=== PATIENT | female | born 2000 ===

== ENCOUNTER 2019-09-29 05:13 | Day surgery (SDC) | payer OTHER ==
[~2019-09-29] VITALS: Ht 160 cm; Wt 118.8 kg
[~2019-09-29 05:13] MED LIST: NORCO 5-325 TA1 EACH ORAL; PORTIA1 EACH PO
[2019-09-29 05:59] VITALS: BP 112/71
[2019-09-29] MEDS ORDERED: HYDROmorphone 1mg/ml Carpuject SUBQ PRN (06:00)
[2019-09-29] MEDS ORDERED: HYDROcodone/Acetamin 10/325 tab ORAL PRN (06:00)
[2019-09-29] MEDS ORDERED: LR 1000ml 1,000 ML IVLG SCH (06:08)
--- NOTE | 2019-09-29 06:10 | Anethesia Preoperative Eval ---
Anesthesia Pre-op PMH/ROS General Date of Evaluation: Sep 29, 2019 Time of Evaluation: 07:16 Anesthesiologist: Anne-Marie ASA Score: ASA 2 Mallampati Score Class I : Soft palate, uvula, fauces, pillars visible Class II: Soft palate, uvula, fauces visible Class III: Soft palate, base of uvula visible Class IV: Only hard plate visible Mallampati Classification: Class II Surgeon: Debi Diagnosis: Back Pain Surgical Procedure: L4-5 Microdiscectomy Social History: smoking Family History: no anesthesia problems Allergies: Coded Allergies: No Known Allergies (Unverified , 09/28/19) Medications: see eMAR Patient NPO?: Yes Past Medical History Other: obesity - Morbid BMI 46 Anesthesia Pre-op Phys. Exam Physician Exam Last Vital Signs Date Time Temp Pulse Resp B/P (MAP) Pulse Ox O2 Delivery O2 Flow Rate FiO2 09/29/19 05:59 98.2 74 20 112/71 98 Room Air Constitutional: NAD Neurologic: CN 2-12 intact Cardiovascular: RRR Respiratory: CTA Gastrointestinal: S/NT/ND Airway Exam Mallampati Score: Class II MO: full ROM: limited Teeth: intact Anesthesia Pre-op A/P Labs Urine Test Test 09/29/19 05:25 Urine HCG, Qualitative Pending Risk Assessment & Plan Assessment: ASA 2 Plan: GA, SED, GlideScope Go Status Change Before Surgery: No Pre-Antibiotics Dru Grams Ancef IV Given Within 1 Hr of Incision: Yes Time Given: 07:34 Ivan Xie MD Sep 29, 2019 06:10
[2019-09-29] MEDS ORDERED: Rocuronium Bromide 50mg/5ml Inj IV ONE (06:12)
[2019-09-29] MEDS ORDERED: DiphenhydrAMINE 50mg/ml Inj IVP PRN (06:15)
[2019-09-29] MEDS ORDERED: Ketorolac 30mg Inj IV PRN ×2 (06:15)
[2019-09-29] MEDS ORDERED: Acetaminophen (Non formulary) 100 ML IV ONE (06:15)
[2019-09-29] MEDS ORDERED: HYDROcodone/Acetamin 5/325 tab ORAL PRN (06:15)
[2019-09-29] MEDS ORDERED: oxyCODONE HCL/Acetaminophen 5/325mg ORAL PRN (06:15)
[2019-09-29] MEDS ORDERED: Midazolam 2mg/2ml Inj IVP PRN (06:15)
[2019-09-29] MEDS ORDERED: Atropine Sulfate 0.4mg/ml inj IVP PRN (06:15)
[2019-09-29] MEDS ORDERED: Hydromorphone 0.5mg/0.5ml inj IVP PRN (06:15)
[2019-09-29] MEDS ORDERED: fentaNYL 100 mcg/2 mL IV PRN (06:15)
[2019-09-29] MEDS ORDERED: HYDROcodone/Acetamin 7.5/325 tab ORAL PRN (06:15)
[2019-09-29] MEDS ORDERED: Meperidine 50mg/ml Inj(FOR RIGORS ONLY) IVP PRN (06:15)
[2019-09-29] MEDS ORDERED: LORazepam Inj 2mg/ml 1ml IV PRN (06:15)
[2019-09-29] MEDS ORDERED: Sodium Chloride 10ml vial INJ ONE (06:20)
[2019-09-29] MEDS ORDERED: Lidocaine 1% Plain 30 ml INJ ONE ×3 (06:20→09:16)
[2019-09-29] MEDS ORDERED: Dexamethasone 4mg/ml vial ONE (06:20)
[2019-09-29] MEDS ORDERED: Lidocaine 1% MPF 10mg/ml 5ml ONE (06:20)
[2019-09-29] MEDS ORDERED: Gelfoam Size TOPIC ONE (06:35)
[2019-09-29] MEDS ORDERED: Thrombin 5000 units TOPIC ONE (06:35)
[2019-09-29] MEDS ORDERED: Bacitracin 50000 Units Vial ONE (06:35)
--- NOTE | 2019-09-29 06:44 | Immediate Post-Op Evaluation ---
Immediate Post-Op Evalulation Immediate Post-Op Evalulation Procedure: L4-5 Microdiscectomy Date of Evaluation: Sep 29, 2019 Time of Evaluation: 10:27 IV Fluids: 800 LR Blood Products: 0 Estimated Blood Loss: 50 Urinary Output: 0 Blood Pressure Systolic: 135 Blood Pressure Diastolic: 85 Pulse Rate: 106 Respiratory Rate: 16 O2 Sat by Pulse Oximetry: 99 Temperature (Fahrenheit): 98.1 Pain Score (1-10): 2 Nausea: No Vomiting: No Complications 0 Patient Status: awake, reacts, patent, extubated, none Hydration Status: adequate Dru Grams Ancef IV Given Within 1 Hr of Incision: Yes Time Given: 07:34 Ivan Xie MD Sep 29, 2019 06:44
--- NOTE | 2019-09-29 06:45 | 48 Hour Post Anesthesia Eval ---
Post Anesthesia Evaluation Procedure: L4-5 Microdiscectomy Date of Evaluation: Sep 29, 2019 Time of Evaluation: 12:52 Blood Pressure Systolic: 123 0: 71 Pulse Rate: 73 Respiratory Rate: 18 Temperature (Fahrenheit): 98.4 O2 Sat by Pulse Oximetry: 98 Airway: patent Nausea: No Vomiting: No Pain Intensity: 3 Hydration Status: adequate Cardiopulmonary Status: Stable Mental Status/LOC: patient returned to baseline Follow-up Care/Observations: 0 Post-Anesthesia Complications: 0 Follow-up care needed: ready to discharge Ivan Xie MD Sep 29, 2019 06:45
[2019-09-29] MEDS ORDERED: Sterile Water Irrig 1000ml IRRIG ONE (07:00)
[2019-09-29] MEDS ORDERED: NS Irrig 1000ml ONE (07:00)
[2019-09-29] MEDS ORDERED: LR 1000ml ONE (07:00)
[2019-09-29] MEDS ORDERED: ceFAZolin sod 1 GM in NS 55 ML IVPB ONE (07:00)
[2019-09-29] MEDS ORDERED: Dexamethasone 20mg/5ml IVP ONE (07:00)
[2019-09-29] MEDS ORDERED: Propofol 1,000mg/ 100ml btl IV ONE (07:00)
--- NOTE | 2019-09-29 07:18 | Pre-Procedure Note/Attestation ---
Pre-Procedure Note/Attestation Complete Prior to Procedure Planned Procedure: left Procedure Narrative: L4-L5 microdiscectomy Indications for Procedure Pre-Operative Diagnosis: trauma HNP pain Attestation I attest that I discussed the nature of the procedure; its benefits; risks and complications; and alternatives (and the risks and benefits of such alternatives ), prior to the procedure, with the patient (or the patient's legal shared services representative). I attest that, if there was a reasonable possibility of needing a blood transfusion, the patient (or the patient's legal shared services representative) was given the [facility] standardized written summary, pursuant to the [place] Blood Safety Act ([place] Health and Safety Code # 1645, as amended). I attest that I re-evaluated the patient just prior to the surgery and that there has been no change in the patient's H&P, except as documented below: Vahe Carrera MD Sep 29, 2019 07:18
--- NOTE | 2019-09-29 07:30 | Consultation ---
DATE OF CONSULTATION: 09/29/2019 CONSULTING PHYSICIAN: Terrell Edwards M.D. REFERRING PHYSICIAN: Vahe Carrera M.D. REASON FOR CONSULTATION: Acute pain consult. HISTORY OF PRESENT ILLNESS: Dear Dr. Vahe Carrera, Thank you kindly for consulting me to evaluate and render an opinion as to how to proceed in the management of this patient's acute postoperative lumbar spine pain after her decompressive lumbar spine surgery today. The patient is an obese 19-year-old, woman, who injured her lumbar spine a couple of years ago after she slipped and fell in a restaurant. She continues to have persistent lumbar spine pain with left greater than right radicular symptoms and today required decompressive lumbar spine surgery. I saw the patient at bedside with her mother and the nurse RN, Elise. I discussed the case with yourself, Dr. Carrera. I performed a detailed history and physical examination at the bedside. I reviewed the medical record in detail including multiple preop records from Dr. Devries along with diagnostic testing. I reviewed multiple records from today's date of surgery at [facility], 09/29/2019 including records from the surgery suite, the nursing, and pharmacy departments. I also discussed the case with the intraoperative anesthesiologist, Dr. Xie. PAST MEDICAL HISTORY: 1. Acute postoperative lumbar spine pain, status post lumbar spine decompressive surgery by Dr. Vahe Carrera in September 2019. 2. Slip and fall accident. 3. Obesity. PAST SURGICAL HISTORY: None prior. ALLERGIES: No known drug allergies. MEDICATIONS: At home, p.r.n. Phoenix. SOCIAL HISTORY: The patient is a student. She lives at home with her mother who I met at the bedside. The patient denies tobacco usage. She drinks alcohol socially. She does use edible marijuana for pain control a few times per week. REVIEW OF SYSTEMS: Per Dr. Devries. FAMILY HISTORY: Obesity. PHYSICAL EXAMINATION: VITAL SIGNS: Age 19, height 5 feet 3 inches, weight 263 pounds, and body mass index 47. Vital signs afebrile, pulse 74, respirations 20, blood pressure 112/71, and oxygen saturation 98% on room air. HEENT: Normocephalic and atraumatic. No Rudd palsy. No Philip syndrome. Pupils are equal, round, and accommodative. NECK: Thick neck. CHEST: Massively obese, barrel-chested. No accessory muscle use noted. No wheezing noted. HEART: Regular rate and rhythm. Distant heart sounds ____. ABDOMEN: Positive pannus. BREASTS/GENITOURINARY: Deferred. EXTREMITIES: Moving all extremities x4. NEUROLOGIC: Detailed neurologic exam per Dr. Carrera. Dull achy pain with range of motion including log-rolling. Straight leg raising deferred at this time. DIAGNOSTIC AND LABORATORY STUDIES: On 09/21/2019 shows HIV negative. Glucose 71, BUN 12, creatinine 0.6, sodium 138, potassium 4.0, chloride 104, bicarb 21, and calcium 9.5. Total protein 7.6. Albumin 4.4. Total bilirubin 0.3. Alkaline phosphatase 87, AST 19, and ALT 63. PTT 29. INR 1.0. Hepatitis B and C all negative. White count 10, hematocrit 43, and platelets 218,000. Sodium 138, potassium 4.0, chloride 104, bicarb 21, and calcium 9.5. Total protein 7.6. Albumin 4.4. Total bilirubin 0.3. Alkaline phosphatase 87, AST 19, and ALT 63. Hemoglobin A1c normal at 5.1. Preoperative 12-lead EKG, normal and heart rate 67. IMPRESSION: 1. Acute postoperative lumbar spine pain, status post lumbar spine decompressive surgery by Dr. Vahe Carrera in September 2019. 2. Slip and fall accident. 3. Obesity TREATMENT RECOMMENDATIONS: I have made the following recommendations to help with her pain control postoperatively. She had has trialed Phoenix in the past and responded quite well without any adverse side effects. I started her on Phoenix 10/325 one tablet orally every three hours for [id number]-tyqtrqan pain complaints. I added a breakthrough dose of Dilaudid 1 mg subcutaneously every three hours p.r.n. for severe breakthrough pain. I have selected the subcutaneous route to lower the risk for postoperative adverse reactions including respiratory depression in this obese woman, who may be at risk for yet-undiagnosed obstructive sleep apnea symptoms with a body mass index of 46. I have added a p.r.n. dose of Soma 350 mg orally every eight hours in case of muscle spasms. I have added Fioricet tablets in case of any headache complaints at a dose of 1 tablet orally every eight hours p.r.n. I have asked the nursing team to place Chloraseptic spray at the bedside in case of any sore throat complaints. In case the patient has postoperative nausea symptoms, I have ordered two different anti-emetics. I have started with Zofran 4 mg intravenously every four hours p.r.n. as a first-line agent, followed by Phenergan 12 mg intramuscularly every eight hours p.r.n. as a second-line agent. I will empirically place the patient on Pepcid 20 mg b.i.d. for GI ulcer prophylaxis. I have also ordered p.r.n. dose of Mylanta 30 mL q.6 h. in case of any GERD symptom exacerbation. The patient does not tolerate edible marijuana for pain control at home. So, I will start her on asidk-xlb-exiik Marinol 2.5 mg every eight hours to help reduce her opioid requirements. This dosing should be well tolerated with her usage at home. I have ordered a dose of Benadryl 25 mg orally every six hours p.r.n. for itching symptoms. I have recommended incentive spirometer be ordered and placed at the bedside to encourage good pulmonary toilet. I have left a prescription for Phoenix 50 tablets 10/325 for outpatient usage. I will defer DVT prophylaxis to the surgical team. Terrell Edwards M.D. DR: LADY JOB#: [id number] CC:
[2019-09-29] MEDS ORDERED: Glycopyrrolate 0.2mg/ml 1ml Vial ONE (09:24)
[2019-09-29] MEDS ORDERED: Neostigmine 1mg/ml 10ml Inj ONE (09:24)
--- NOTE | 2019-09-29 09:46 | Brief Operative Note ---
Immediate Post Operative Note Operative Note Pre-op Diagnosis: trauma HNP pain Procedure: L4-L5 hemilaminotomy bilateral microdiscectomy local body habitus Post-op Diagnosis: same as pre-op Findings: consistent w/pre-op dx studies Surgeon: Debi Ph.D., M.DBashir Manager Of Corporate Communications: Manas CONNER Anesthesiologist: Anne-Marie IBARRA Anesthesia: general Specimen: yes Complications: none Condition: stable Fluids: anesthesia Estimated Blood Loss: minimal Drains: none Implant(s) used?: No Vahe Carrera MD Sep 29, 2019 09:46
[2019-09-29] MEDS ORDERED: Naloxone 0.4mg/ml Inj IVP PRN (10:00)
[2019-09-29 10:16] VITALS: BP 148/92
[2019-09-29 10:21] VITALS: BP 140/89
[2019-09-29 10:26] VITALS: BP 134/87
[2019-09-29 10:41] VITALS: BP 144/84
[2019-09-29 12:00] VITALS: BP 128/83
[2019-09-29] MEDS ORDERED: D5 1/2NS 1,000 ML IV SCH (12:00)
[2019-09-29] MEDS ORDERED: Dronabinol 2.5mg Cap ORAL SCH (12:00)
[2019-09-29] MEDS ORDERED: Chloraseptic Spray 20mL Bottle ORAL PRN (12:30)
--- NOTE | 2019-09-29 12:30 | Operative Note - Dictated ---
DATE OF OPERATION: 09/29/2019 SURGEON: Vahe Carrera, Ph.D., M.D. RELATIONSHIP ADVISOR: UBALDO Saleh. ANESTHESIOLOGIST: Ivan Xie M.D. ANESTHESIA: General with intubation. ESTIMATED BLOOD LOSS: Minimal. SPECIMEN: L4-L5, disc fragments to pathology. ADMITTING/PREOPERATIVE DIAGNOSIS: Lumbar herniated nucleus pulposus pain. POSTOPERATIVE DIAGNOSIS: Lumbar herniated nucleus pulposus pain. OPERATIVE PROCEDURE: L4-L5, bilateral hemilaminotomy inferior L4. L4-L5 microdiscectomy with bilateral hemilaminotomies. Application of local anesthetic by surgeon, intraoperative fluoroscopy interpreted by surgeon. SSEP/EMG monitoring. The patient's body habitus greater than 95th percentile for height. DRAINS: None. COMPLICATIONS: None. POSTOPERATIVE CONDITION: Good/stable. DESCRIPTION OF PROCEDURE: The patient was brought to the operating room and in the supine position, general anesthesia with intubation was induced. The patient was administered IV antibiotics, IV Decadron 30 minutes prior to incision time. The patient was carefully turned and positioned in the prone position. Lumbodorsal spine was sterilely prepped. A spinal needle was placed midline at approximately the L4-L5 interval through dermis and epidermis and subcutaneous tissue only under sterile conditions. Cross-table imaging obtained demonstrating the correct level for incision placement. Needle was removed. Back was re-sterilely prepped and draped free in usual sterile fashion. A longitudinal incision over the appropriate interval was sharply placed through the dermis and epidermis. Extensive electrocautery dissection was through subcutaneous tissue to the level of lumbodorsal fascia that was incised left in midline over the lamina of L4 and L5 with identification of the pars interarticularis and maintenance of the facet capsular integrity. Marker was placed at the interval and a cross-table image was obtained under sterile conditions and interpreted by surgeon demonstrating a correct level as L4-L5. Position marked was recorded. Marker removed. Retractors placed. Hemilaminotomy left of inferior L4 with resection of the ligamentum flavum was undertaken. Adequate medialization was not possible with the patient's body habitus. Therefore, resection of the interspinous ligament inferior L4 spinous process and hemilaminotomy right of L4 was undertaken. Ligamentum flavum excised. Dissection carried left lateral to the dural tube exiting nerve root. Electrocautery dissection was utilized minimally for control of epidural bleeding. No cerebrospinal fluid leakage was noted anytime during the procedure. Disc spaces were identified. Annulotomy performed followed with microdiscectomy of the subligamentous herniated nucleus pulposus. Maximum depth of microdiscectomy not exceeding 14 mm. No gross bleeding from the disc space proper. Disc space irrigated with antibiotic-containing saline. No further free fragments. FloSeal applied. Reinspection revealed no obvious excoriation or laceration of the dura/vital structures. No cerebrospinal fluid leakage. Neural monitoring stable. Sequential reapproximation of the lumbodorsal fascia, subcutaneous tissue in multiple layers, dermis and epidermis. Transverse surgical strips. Local anesthetic 1% lidocaine with epinephrine at the dermal/subcutaneous interval as local anesthetic. Sterile bandage applied. Maintained in place with tape. The patient was awakened, extubated in the operating room, and transported to postop recovery in good stable condition. Vahe Carrera M.D. DR: AMBER JOB#: [id number] CC:
--- NOTE | 2019-09-29 12:54 | NUR ---
NURSE NOTES: Patient voided yellow urine. No complain of pain or discomfort at this time. Will continue to monitor.
--- NOTE | 2019-09-29 13:35 | NUR ---
NURSE NOTES: Patient currently being evaluated by PT.
--- NOTE | 2019-09-29 13:50 | NUR ---
PT EVALUATION NOTE Patient seen for initial evaluation. Patient educated in back precautions and proper log roll technique. Patient presents with impaired functional mobility s/p lumbar surgery. Patient requires supervision/SBA for bed mobility, transfers and ambulation. Patient able to ambulate 200 ft without assistive device and able to ascend/descend 8 stairs holding one rail with supervision/SBA. Patient will benefit from skilled inpatient PT intervention to increase independence with functional mobility and ensure compliance with back precautions. Recommend discharge home once medically cleared by MD and elevated toilet seat for home. Addendum: 09/29/19 at 1501 by BABS ALFARO PT Amended: Links added.
[2019-09-29] MEDS ORDERED: ceFAZolin sod 1 GM in D5W 55 ML IV SCH (15:30)
--- NOTE | 2019-09-29 16:20 | NUR ---
NURSE NOTES: Reassessed patient's pain level to be at 3. RN unable to document because pain medication was discontinued.
--- NOTE | 2019-09-29 16:50 | NUR ---
NURSE NOTES: Accompanied patient during ambulation. Able to ambulate the whole corridor independently, with tolerable pain, no dizziness or N/V.
[2019-09-29] MEDS ORDERED: NORCO 10-325 T1 EACH ORAL (17:10)
--- NOTE | 2019-09-29 18:00 | NUR ---
NURSE NOTES: Patient discharged to home ambulatory and in stable condition, accompanied by family at bedside. IV line removed, no s/s of infiltration. ID band removed. Discharge instructions given, verbalized understanding.
--- NOTE | 2019-09-30 14:57 | Diagnostic Imaging Report ---
INDICATION: Pain, intraoperative TECHNIQUE: Intraoperative imaging Fluoroscopy time: 4.4 seconds Total dose: 0.10393 mGym2 Total number of images: 3 COMPARISON: None FINDINGS: Intraoperative images demonstrate a surgical tool projected posteriorly into what is presumably L4-5 disc. Subsequent images demonstrate a surgical tool projected posterior to L5 IMPRESSION: Intraoperative imaging, as described
== END 2019-09-29 18:00 | disposition home or self-care (01) ==
LOC: SUR 05:13 → 3E 11:10
DX: M51.26 Other intervertebral disc displacement, lumbar region (principal); E66.9 Obesity, unspecified; Z68.42 Body mass index [BMI] 45.0-49.9, adult
CPT/HCPCS: 36415; 63030; 72020; 76000; 81025; 86850; 86900; 86901; 97116; 97162; 97530; J0690; J1100; J2001; J2250; J2405; J2704; J2710; J3010; J7120; 94003; 94150